=== PATIENT | male | born 1970 | race Caucasian/White ===

== ENCOUNTER 2018-11-07 12:37 | Emergency (ER) | payer BC ==
[~2018-11-07] VITALS: Ht 182.9 cm; Wt 104.5 kg
[2018-11-07 13:12] VITALS: Ht 182.9 cm; Wt 104.5 kg
[2018-11-07] MEDS ORDERED: AZOR 10-20 MG T1 TAB PO (13:14)
[2018-11-07] MEDS ORDERED: CATAPRES0.2 MG PO (13:14)
[2018-11-07] MEDS ORDERED: DYAZIDE PO (13:15)
[2018-11-07] MEDS ORDERED: MOBIC7.5 MG PO (13:16)
[2018-11-07] MEDS ORDERED: CARDURA1 MG PO (13:16)
[2018-11-07 13:50] LABS: BASOPHILS 0.2 % (0-2); EOSINOPHILS 1.5 % (0-7); HEMATOCRIT 38.2 % (42.0-54.0); HEMOGLOBIN 13.8 g/dL (13.5-17.5); IMMATURE GRANULOCYTES 0.2 % (0-5); LYMPHOCYTES 21.9 % (15-50); MCHC 36.1 g/dL (31.0-37.0); MCV 85.8 fL (80.0-100.0); NEUTROPHILS 68.2 % (40-80); PLATELET COUNT 156 10x3/uL (130-400); RBC 4.45 10x6/uL (4.20-6.10); RDW 12.3 % (11.5-14.5); WBC 4.7 10x3/uL (4.8-10.8)
[2018-11-07 14:16] LABS: ALBUMIN 4.1 g/dL (3.4-5.0); ANION GAP 11.8 mmol/L (8-16); BILIRUBIN - TOTAL 0.45 mg/dL (0.2-1.3); CALCIUM 8.7 mg/dL (8.5-10.1); CARBON DIOXIDE 25.9 mmol/L (21.0-32.0); CREATININE - SERUM 1.7 mg/dL (0.6-1.3); POTASSIUM - SERUM 3.7 mmol/L (3.5-5.1); PROTEIN - SERUM 7.3 g/dL (6.4-8.2)
[2018-11-07 15:38] LABS: INR 1.05 (0.85-1.17); PROTIME 13.2 SECONDS (11.6-15.0)
[2018-11-07 15:39] LABS: APTT 29.4 SECONDS (22.8-39.4)
[2018-11-07 15:55] LABS: CKMB 2.2 U/L (0.0-3.6); CREATINE KINASE 322 UL (21-232)
[2018-11-07 15:56] LABS: TROPONIN-I < 0.017 ng/mL (0.000-0.060)
[2018-11-07 18:40] LABS: CKMB 2.3 U/L (0.0-3.6); CREATINE KINASE 317 UL (21-232)
[2018-11-07 18:49] LABS: TROPONIN-I < 0.017 ng/mL (0.000-0.060)
[2018-11-07] MEDS ORDERED: MECLIZINE HCL25 MG PO (19:19)
[2018-11-07 19:31] VITALS: BP 125/70
== END 2018-11-07 19:34 | disposition home or self-care (01) ==
LOC: D.ER 12:37
PROVIDERS: Family Medicine
DX: R42 Dizziness and giddiness (principal); I95.2 Hypotension due to drugs

== ENCOUNTER 2018-11-08 15:30 | Emergency (ER) | payer BC ==
[~2018-11-08] VITALS: Ht 182.9 cm; Wt 104.5 kg
[~2018-11-08 15:30] MED LIST: AZOR 10-20 MG T1 TAB PO; CARDURA1 MG PO; CATAPRES0.2 MG PO; DYAZIDE PO; MECLIZINE HCL25 MG PO; MOBIC7.5 MG PO
[2018-11-08 15:41] VITALS: Ht 182.9 cm; Wt 104.5 kg
[2018-11-08 23:44] VITALS: BP 127/88
== END 2018-11-08 23:45 | disposition other institution (70) ==
LOC: D.ER 15:30
DX: R42 Dizziness and giddiness (principal); R11.0 Nausea; H55.00 Unspecified nystagmus